=== PATIENT | female | born 1945 | race African-American/Black ===

== ENCOUNTER 2019-09-04 | Emergency (ER) | payer MEDICARE ==
[2019-09-04] MEDS ORDERED: LORTAB 1010 MG PO ×2 (13:43→14:49)
[2019-09-04] MEDS ORDERED: VITAMIN B-12500 MCG PO (13:48)
[2019-09-04] MEDS ORDERED: LEVEMIR100 UNIT/M SC (13:51)
[2019-09-04] MEDS ORDERED: FLONASE AL50 MCG/ACT IN (13:51)
[2019-09-04] MEDS ORDERED: METFORMIN500 MG PO (13:52)
[2019-09-04] MEDS ORDERED: LISINOPRIL5 MG PO (13:52)
[2019-09-04] MEDS ORDERED: VERAPAMIL240 M1 PO (13:53)
[2019-09-04] MEDS ORDERED: ACTOS30 MG PO (13:53)
[2019-09-04] MEDS ORDERED: FISH OIL1 CAP PO (13:53)
[2019-09-04] MEDS ORDERED: MULTI VIT PO (13:54)
[2019-09-04] MEDS ORDERED: CALCI23 PO (13:54)
[2019-09-04] MEDS ORDERED: K-DUR/KLOR-CON20 MEQ PO (13:54)
[2019-09-04] MEDS ORDERED: ADULT ASPIRIN R81 MG PO (13:55)
== END 2019-09-04 14:17 | disposition home or self-care (01) ==
DX: S82.142A Displaced bicondylar fracture of left tibia, initial encounter for closed fracture (principal); E11.9 Type 2 diabetes mellitus without complications; I10 Essential (primary) hypertension; W50.1XXA Accidental kick by another person, initial encounter; Y93.F9 Activity, other caregiving; Y92.89 Other specified places as the place of occurrence of the external cause; Y99.0 Civilian activity done for income or pay; Z79.4 Long term (current) use of insulin
CPT/HCPCS: L1830